=== PATIENT | male | born 1955 | race Caucasian/White ===

== ENCOUNTER → 2024-07-26 15:12 | Outpatient (BNVA) | payer MEDICARE, SELFPAY | PROVIDERS: Family Provider Family Medicine; PCP Family Medicine; Visit Provider Nurse Practitioner | DX: S52.124A Nondisplaced fracture of head of right radius, initial encounter for closed fracture; M19.021 Primary osteoarthritis, right elbow; W11.XXXA Fall on and from ladder, initial encounter; Z46.89 Encounter for fitting and adjustment of other specified devices; S52.121D Displaced fracture of head of right radius, subsequent encounter for closed fracture with routine healing; X58.XXXD Exposure to other specified factors, subsequent encounter | CPT/HCPCS: 73080 ==

== ENCOUNTER 2024-07-26 17:26 | Outpatient (CLI) | payer MEDICARE, SELFPAY | END 2024-07-26 17:27 | disposition home or self-care (01) | LOC: SPT 17:27 | PROVIDERS: Family Provider Family Medicine; PCP Family Medicine; Visit Provider Nurse Practitioner | DX: Z46.89 Encounter for fitting and adjustment of other specified devices (principal); S52.121D Displaced fracture of head of right radius, subsequent encounter for closed fracture with routine healing; X58.XXXD Exposure to other specified factors, subsequent encounter | CPT/HCPCS: L3761 ==